=== PATIENT | male | born 1955 | race Caucasian/White ===

== ENCOUNTER → 2021-10-03 | Outpatient (CLI) | payer MEDICARE | END | disposition home or self-care (01) | LOC: LABPAT 08:53 | PROVIDERS: ATTEND Surgery | DX: Z01.812 Encounter for preprocedural laboratory examination (principal); I10 Essential (primary) hypertension | CPT/HCPCS: 93005 ==

== ENCOUNTER 2021-10-09 09:26 | Day surgery (SDC) | payer MEDICARE ==
[2021-10-01 12:26] VITALS: BMI 38.8
[~2021-10-09 09:26] MED LIST: ACETAMINOPHEN TAB 500 MG TAB PO PRN; DEXAMETHASONE SOD PHOSPHATE 4 MG/ML 1 ML VIAL IV ONE; HEPARIN SODIUM,PORCINE/PF 5,000 UNIT/0.5 ML SYRINGE SQ PRN; LACTATED RINGERS 1,000 ML IV SCH; LIDOCAINE 1% (10MG/ML) FOR IV START INTRADERMA PRN; MIDAZOLAM 2 MG/2 ML VIAL IV PRN; ONDANSETRON 4 MG/2 ML VIAL IVP ONE; ceFAZolin 3 GM in SODIUM CHLORIDE 0.9% 100 ML IVPB PRN
[2021-10-09] MEDS ORDERED: NEOSTIGMINE 1 MG/ML 10 ML VIAL ONE (11:20)
[2021-10-09] MEDS ORDERED: LIDOCAINE 1% INJ 10MG/ML (20 ML MDV) ONE (11:20)
[2021-10-09] MEDS ORDERED: SUCCINYLCHOLINE CHLORIDE 100 MG/5 ML SYR IV ONE (11:20)
[2021-10-09] MEDS ORDERED: PROPOFOL 10 MG/ML 20 ML VIAL IV ONE (11:20)
[2021-10-09] MEDS ORDERED: MIDAZOLAM 2 MG/2 ML VIAL ONE (11:20)
[2021-10-09] MEDS ORDERED: ROCURONIUM 10 MG/ML (5 ML VIAL) IV ONE (11:20)
[2021-10-09] MEDS ORDERED: GLYCOPYRROLATE 0.2 MG/ML 2 ML VIAL ONE (11:20)
[2021-10-09] MEDS ORDERED: fentaNYL (PF) 50 MCG/ML 2 ML AMP ONE (11:20)
[2021-10-09] MEDS ORDERED: BUPIVACAINE (PF) 0.25% 30 ML VIAL SQ ONE ×2 (11:55)
[2021-10-09] MEDS ORDERED: LACTATED RINGERS 1,000 ML IV ONE (12:07)
--- NOTE | 2021-10-09 12:26 | P.OP ---
Date of Procedure: 10/09/21 Procedure(s) Performed: PREOPERATIVE DIAGNOSIS: Incisional hernia POSTOPERATIVE DIAGNOSIS: Same PROCEDURE: Repair incisional hernia with mesh SURGEON: Dr. Beavers ANESTHESIA: General OPERATIVE PROCEDURE DETAILS: Patient placed on the operating table in the supine position. Abdomen was prepped and draped in usual sterile fashion. The previous incision was re-incised. Dissection through the subcutaneous tissues took place using electrocautery. A small to moderate sized reducible incisional hernia was identified. The hernia sac was carefully dissected down to the level of the fascia where it was excised. The patient had a single fascial defect measuring 2 x 1.5 cm in size. The preperitoneal space was dissected circumferentially. The 6.4 cm ventral X mesh was placed beneath the fascia and sutured to the fascia using trans-fascial 0 Ethibond sutures. Following that the fascial defect was reapproximated using vest over pants interrupted mattress 0 Ethibond sutures. The edge was tacked down as well using interrupted 0 Ethibond sutures. The subcutaneous tissues were closed using 3-0 Vicryl sutures. The skin was closed using a running 4-0 Monocryl suture. Sterile dressings were applied. HERNIA CHARACTERISTICS: Length: 2 cm Width: 1.5 cm Type: Reducible incisional TYPE OF MESH USED: 6.4 cm ventral X LOCATION OF MESH: [place] FIXATION: 0 Ethibond sutures DISPOSITION: Stable to recovery room
[2021-10-09 12:35] VITALS: RESP 16; TEMP 97
[2021-10-09] MEDS ORDERED: ACETAMINOPHEN TAB 325 MG TAB PO SCH (13:00)
[2021-10-09] MEDS: HYDROmorphone 0.5 MG/0.5 ML SYRINGE IVP PRN ×2 (13:01→13:08)
[2021-10-09] MEDS ORDERED: SUMAtriptan succinate 50 MG TAB PO STA (13:03)
[2021-10-09 15:06] VITALS: BP 124/81; PULSE 76
[2021-10-09] MEDS ORDERED: IBUPROFEN 600 MG TAB PO SCH (16:00)
== END 2021-10-09 15:03 | disposition home or self-care (01) ==
LOC: OR 09:26
PROVIDERS: ATTEND Surgery
DX: K43.2 Incisional hernia without obstruction or gangrene (principal); Z20.822 Contact with and (suspected) exposure to COVID-19
CPT/HCPCS: 49560; 49568; 87635; C1781; J2250; J1100; J2710; J0690; J2405; J2001; J3010; J0330; J2704; J1170; J1644

== ENCOUNTER → 2022-09-22 | Outpatient (CLI) | payer MEDICARE | END | disposition home or self-care (01) | LOC: LABWHC1 13:11 | PROVIDERS: ATTEND Family Medicine | DX: I49.1 Atrial premature depolarization (principal); I44.4 Left anterior fascicular block; R07.89 Other chest pain; R94.31 Abnormal electrocardiogram [ECG] [EKG] | CPT/HCPCS: 36415; 93005 ==

== ENCOUNTER → 2022-12-21 | Outpatient (CLI) | payer MEDICARE ==
[2022-12-21 14:34] LABS: HCT 44.2 % (39.6-50.0); HGB 14.5 g/dL (13.0-17.0); MCH 28.2 pg (27.0-32.0); MCHC 32.8 g/dL (32.0-37.0); MCV 85.8 fL (80.0-97.0); Mean Platelet Volume 10.8 fL (9.5-12.2); NRBC Per 100 WBC 0 /100 WBCS (0.0-0.0); Platelet Count 211 X 10*3/uL (140-440); RBC 5.15 X 10*6/uL (4.40-5.60); RDW 12.8 % (11.5-14.5); WBC 8.56 X 10*3/uL (4.50-10.00)
[2022-12-21 15:37] LABS: African American GFR (CKD) 71.6 (60.0-200.0); Anion Gap 7.9 mmol/L (10.00-18.00); Blood Urea Nitrogen 12.2 mg/dL (9.0-27.0); Carbon Dioxide 27.1 mmol/L (20.0-27.5); Non-African American GFR(CKD) 61.8 (60.0-200.0); Potassium 4.3 mmol/L (3.5-5.5)
== END | disposition home or self-care (01) ==
LOC: LABPAT 10:20
PROVIDERS: ATTEND Internal Medicine
DX: Z01.818 Encounter for other preprocedural examination (principal); R06.02 Shortness of breath
CPT/HCPCS: 80051; 82565; 84520; 85027

== ENCOUNTER 2022-12-30 07:29 | Day surgery (SDC) | payer MEDICARE ==
[2022-12-24 15:21] VITALS: BMI 41.5
[~2022-12-30 07:29] MED LIST changes: -ACETAMINOPHEN TAB 500 MG TAB PO PRN; +ALPRAZolam 0.25 MG TAB PO PRN; +ALPRAZolam 0.5 MG TAB PO PRN; +ASPIRIN 325 MG TAB PO STA; -DEXAMETHASONE SOD PHOSPHATE 4 MG/ML 1 ML VIAL IV ONE; -HEPARIN SODIUM,PORCINE/PF 5,000 UNIT/0.5 ML SYRINGE SQ PRN; -LACTATED RINGERS 1,000 ML IV SCH; -LIDOCAINE 1% (10MG/ML) FOR IV START INTRADERMA PRN; -MIDAZOLAM 2 MG/2 ML VIAL IV PRN; +NITROGLYCERIN SL TABS 0.4 MG TAB SUBLINGUAL PRN; -ONDANSETRON 4 MG/2 ML VIAL IVP ONE; +SODIUM CHLORIDE 0.9% 1,000 ML in EMPTY BAG 1 BAG IV SCH; -ceFAZolin 3 GM in SODIUM CHLORIDE 0.9% 100 ML IVPB PRN
[2022-12-30 08:12] VITALS: TEMP 97.7
[2022-12-30] MEDS ORDERED: fentaNYL (PF) 50 MCG/ML 2 ML AMP ONE (08:16)
[2022-12-30] MEDS ORDERED: HEPARIN SODIUM 1,000 UN/ML (10ML VL) ONE (08:17)
[2022-12-30] MEDS ORDERED: fentaNYL (PF) 50 MCG/ML 2 ML AMP IV ONE (08:23)
[2022-12-30] MEDS ORDERED: MIDAZOLAM 2 MG/2 ML VIAL IV ONE (08:23)
[2022-12-30] MEDS ORDERED: LIDOCAINE 1% INJ 10MG/ML (5 ML VIAL-PF) SQ ONE (08:27)
[2022-12-30] MEDS ORDERED: VERAPAMIL SYRINGE (5 MG/10 ML) INTRAARTER ONE (08:28)
[2022-12-30] MEDS ORDERED: HEPARIN SODIUM 1,000 UN/ML (10ML VL) IV ONE (08:30)
[2022-12-30] MEDS ORDERED: IOPAMIDOL-370 125ML BTL INJ ONE (08:44)
--- NOTE | 2022-12-30 08:45 | P.CARDCATH ---
Description of Procedure: PROCEDURES PERFORMED: Left heart catheterization, bilateral coronary angiography INDICATION: Abnormal stress test CONSENT:I have discussed the risks, benefits and alternative therapies for the above-mentioned procedure and for both sedation/analgesia as well as necessary blood product administration, if indicated, as they pertain to this patient. The patient has indicated understanding and acceptance of the risks and procedures discussed. PROCEDURE: After the risks, benefits and alternatives of the above mentioned procedure explained in detail with the patient, informed consent was obtained. Patient was taken to the catheterization lab and prepped and draped in usual fashion. 1% lidocaine was used to anesthetize the right radial artery. A 6- [place]i sheath was placed in the right radial artery using modified Seldinger technique. Left coronary angiography was performed with a 5-[place] JL 3.5 catheter and right coronary angiography was performed with a 5-[place] AR2 catheter in various views. A 5-[place] FR5 catheter was inserted into the left ventricle and pressure measurements were obtained. The right radial sheath was removed and a TR band was placed with hemostasis achieved. The patient tolerated the procedure well. Patient was transported back to the post catheterization holding area in stable condition. Conscious Sedation: Patient was monitored under the direct supervision of myself for conscious sedation using Versed and fentanyl for a total duration of 15 minutes HEMODYNAMICS: Order: 117/61 LV: 113/7, LVEDP 15 SELECTIVE CORONARY ARTERIOGRAPHY: LEFT MAIN: The left main is a large caliber vessel which bifurcates into the LAD and circumflex. There is no significant stenosis. The left main is very short and nearly dual ostia of LAD and circumflex. LEFT ANTERIOR DESCENDING CORONARY ARTERY: LAD is a large caliber vessel which wraps around to the apex. There is no significant stenosis. LEFT CIRCUMFLEX CORONARY ARTERY: Left circumflex is a moderate caliber vessel without significant stenosis. RIGHT CORONARY ARTERY: The right coronary artery is a large caliber vessel which gives off a PDA and PLV branch and is the dominant vessel. There is no significant stenosis. FINAL IMPRESSION: 1. Normal coronary arteries as described above. 2. Normal left sided filling pressures PLAN: 1. Aggressive risk factor modification per most recent ACC/AHA guidelines. 2. Follow-up in the office in 1-2 weeks.
[2022-12-30 09:41] VITALS: RESP 16
[2022-12-30 14:38] VITALS: BP 114/65; PULSE 82
== END 2022-12-30 13:17 | disposition home or self-care (01) ==
LOC: CATHCVL 07:29
PROVIDERS: ATTEND Internal Medicine
DX: R94.39 Abnormal result of other cardiovascular function study (principal); I10 Essential (primary) hypertension; I87.2 Venous insufficiency (chronic) (peripheral); E78.5 Hyperlipidemia, unspecified; F17.210 Nicotine dependence, cigarettes, uncomplicated; Z88.1 Allergy status to other antibiotic agents; Z79.82 Long term (current) use of aspirin; Z79.899 Other long term (current) drug therapy
CPT/HCPCS: 93458; C1769; C1894; J2250; J2001; J3010; J1644; Q9967

== ENCOUNTER → 2023-07-27 | Outpatient (CLI) | payer MEDICARE ==
--- NOTE | 2023-07-27 15:17 | XR ---
EXAMINATION TYPE: XR cervical spine comp DATE OF EXAM: 07/27/2023 3:12 PM INDICATION: Patient age:Male; 68 years old; Reason for study: M54.12 radiculopathy; PHH. COMPARISON: None TECHNIQUE: The cervical spine was imaged in AP, bilateral oblique, lateral, and odontoid projections. Frontal, lateral, odontoid and bilateral oblique. FINDINGS: The osseous structures show normal alignment without evidence of an acute fracture. Fusion of the C4 and C5 vertebral bodies. Multilevel disc space narrowing with endplate sclerosis and anterior osteoph ytosis. This is most prominent at C5-C6 and C6-C7 . Mild neural foraminal narrowing at C7 bilaterally . Pedicles are intact. Soft tissues are within normal limits. The odontoid appears intact. IMPRESSION: 1. No fracture or dislocation. 2. Mild to moderate degenerative disc disease changes of the cervical spine. 3. Fusion of the C4 and C5 vertebral bodies.
== END | disposition home or self-care (01) ==
LOC: RADXRMAIN 14:55
PROVIDERS: ATTEND Family Medicine
DX: M50.122 Cervical disc disorder at C5-C6 level with radiculopathy (principal); M43.22 Fusion of spine, cervical region
CPT/HCPCS: 72050

== ENCOUNTER 2023-08-11 12:56 | Emergency (ER) | payer MEDICARE ==
[2023-08-11] MEDS ORDERED: KETOROLAC 15 MG/ML 1 ML VIAL IVP STA (13:27)
--- NOTE | 2023-08-11 13:29 | ED ---
General Adult HPI - General Chief complaint: Neuro Symptoms/Deficit Stated complaint: HTN-Arm numbness Time Seen by Provider: 08/11/23 13:12 Source: patient, family, RN notes reviewed Mode of arrival: ambulatory Limitations: no limitations, language barrier - History of Present Illness Initial comments: Patient is a pleasant 68-year-old male presenting to the emergency department with concern for right arm paresthesia. Onset of symptoms was around a week ago. Patient does state there is minimal discomfort right side of the neck. Patient denies weakness. Patient denies loss of sensation. No confusion. No history of similar symptoms previously. Patient is deaf however is able to read lips and demonstrate understanding - Related Data Home Medications Medication Instructions Recorded Confirmed Cyclobenzaprine [Flexeril] 10 mg PO DIRECTED PRN 10/01/21 12/24/22 Meclizine [Antivert] 25 mg PO DIRECTED PRN 10/01/21 12/24/22 Omeprazole 40 mg PO QAM 10/01/21 12/30/22 SUMAtriptan succinate [Imitrex] 100 mg PO DIRECTED PRN 10/01/21 12/24/22 Aspirin 325 mg PO HS 12/24/22 12/30/22 Losartan [Cozaar] 50 mg PO HS 12/24/22 12/30/22 Previous Rx's Medication Instructions Recorded Sulfamethox-Tmp 800-160Mg [Bactrim 2 tab PO BID #40 tab 02/01/23 DS 800-160 mg] predniSONE [Deltasone] 20 mg PO BID #10 tab 08/11/23 Allergies Allergy/AdvReac Type Severity Reaction Status Date / Time Penicillins Allergy Unknown Verified 08/11/23 13:11 clindamycin AdvReac Unknown Verified 08/11/23 13:10 Review of Systems ROS Statement: Those systems with pertinent positive or pertinent negative responses have been documented in the HPI. ROS Other: All systems not noted in ROS Statement are negative. Constitutional: Denies: fever Eyes: Denies: eye pain ENT: Denies: ear pain Respiratory: Denies: dyspnea Cardiovascular: Denies: chest pain Neurological: Reports: as per HPI. Denies: headache, weakness Past Medical History Past Medical History: Hypertension Additional Past Medical History / Comment(s): MIGRAINES. VERTIGO. PT IS DEAF History of Any Multi-Drug Resistant Organisms: None Reported Past Surgical History: Cholecystectomy Additional Past Surgical History / Comment(s): SKIN CANCER REMOVED LEFT WRIST. MEGHANA CATARACTS REMOVED Past Anesthesia/Blood Transfusion Reactions: No Reported Reaction, Motion Sickness Additional Past Anesthesia/Blood Transfusion Reaction / Comment(s): HX OF VERTIGO Past Psychological History: No Psychological Hx Reported Smoking Status: Never smoker Past Alcohol Use History: Rare Past Drug Use History: None Reported - Past Family History Mother Family Medical History: Cancer, CVA/TIA Father Family Medical History: CVA/TIA General Exam Limitations: no limitations General appearance: alert, in no apparent distress Head exam: Present: normocephalic Eye exam: Present: normal appearance, PERRL, EOMI ENT exam: Present: normal oropharynx Neck exam: Present: tenderness (Minimal right lateral) Respiratory exam: Present: normal lung sounds bilaterally Cardiovascular Exam: Present: regular rate, normal rhythm Expanded Peripheral pulses: 2+: Radial (R), Radial (L) GI/Abdominal exam: Present: soft. Absent: tenderness Extremities exam: Present: normal inspection, full ROM. Absent: tenderness Neurological exam: Present: alert, CN II-XII intact. Absent: motor sensory def icit Expanded Neurological exam: Present: protecting the airway Speech: Present: fluid speech Cranial nerves: EOM's Intact: Normal Sensory exam: Upper Extremity Light Touch: Normal, Lower Extremity Light Touch: Normal Motor strength exam: RUE: 5, LUE: 5, RLE: 5, LLE: 5 Eye Response: (4) open spontaneously Motor Response: (6) obeys commands Verbal Response: (5) oriented Psychiatric exam: Present: normal affect, normal mood Skin exam: Present: normal color Course Vital Signs 08/11/23 08/11/23 08/11/23 13:02 14:10 15:56 Temperature 97.6 F Pulse Rate 76 85 80 Respiratory 17 20 20 Rate Blood Pressure 128/83 139/65 134/76 O2 Sat by Pulse 98 98 98 Oximetry EKG Findings - EKG Results: EKG: interpreted by ERMD (l [place]. Poor R-wave progression. Nonspecific ST-T.), sinus rhythm Medical Decision Making - Medical Decision Making Was pt. sent in by a medical professional or institution (, PA, VISION CARE ASSOCIATE, urgent care, hospital, or care home...) When possible be specific @ -No Did you speak to anyone other than the patient for history (EMS, parent, family, police, friend...)? What history was obtained from this source @ - is present and helps confirm history including using sign language Did you review nursing and triage notes (agree or disagree)? Why? @ -I reviewed and agree with nursing and triage notes Were old charts reviewed (outside hosp., previous admission, EMS record, old EKG, old radiological studies, urgent care reports/EKG's, care home records)? Report findings @ -No old charts were reviewed Differential Diagnosis (chest pain, altered mental status, abdominal pain women, abdominal pain men, vaginal bleeding, weakness, fever, dyspnea, syncope, heada florentin, dizziness, GI bleed, back pain, seizure, CVA, palpatations, mental health, musculoskeletal)? @ -Differential Musculoskeletal Muscular strain, contusion, ligament sprain, fracture, arthritis, septic arthritis, bursitis, cellulitis, muscle spasm, nerve compression, DVT, arterial occlusion, herpes zoster, electrolyte abnormality, tumor.... This is not meant to be in all inclusive list EKG interpreted by me (3pts min.). @ -As above X-rays interpreted by me (1pt min.). @ -Chest x-ray shows no acute process. CT interpreted by me (1pt min.). @ -Truman reviewed U/S interpreted by me (1pt. min.). @ -None done What testing was considered but not performed or refused? (CT, X-rays, U/S, labs)? Why? @ -None What meds were considered but not given or refused? Why? @ -None Did you discuss the management of the patient with other professionals (professionals i.e. , PA, VISION CARE ASSOCIATE, lab, RT, psych nurse, high school social studies tutor, recreation program coordinator, teacher, animal park code enforcement officer, case assistant)? Give summary @ -No Was smoking cessation discussed for >3mins.? @ -No Was critical care preformed (if so, how long)? @ -No Were there social determinants of health that impacted care today? How? (Homelessness, low income, unemployed, alcoholism, drug addiction, transportation, low edu. Level, literacy, decrease access to med. care, fdc, rehab)? @ -No Was there de-escalation of care discussed even if they declined (Discuss DNR or withdrawal of care, Hospice)? DNR status @ -No What co-morbidities impacted this encounter? (DM, HTN, Smoking, COPD, CAD, Cancer, CVA, ARF, Chemo, Hep., AIDS, mental health diagnosis, sleep apnea, morbid obesity)? @ -None Was patient admitted / discharged? Hospital course, mention meds given and route, prescriptions, significant lab abnormalities, going to OR and other pertinent info. @ -Patient reevaluated with improvement however not complete resolution. Patient and family updated on results and need for follow-up. Patient will be discharged with orthopedic follow-up. Patient previously has family that has seen Dr. Garcia. Patient will be prescribed steroids. Undiagnosed new problem with uncertain prognosis? @ -No Drug Therapy requiring intensive monitoring for toxicity (Heparin, Nitro, Insulin, Cardizem)? @ -No Were any procedures done? @ -No Diagnosis/symptom? @ -Right arm paresthesias Acute, or Chronic, or Acute on Chronic? @ -Acute Uncomplicated (without systemic symptoms) or Complicated (systemic symptoms)? @ -default Side effects of treatment? @ -No Exacerbation, Progression, or Severe Exacerbation? @ -No Poses a threat to life or bodily function? How? (Chest pain, [place], [place], pneumonia, PE, COPD, DKA, ARF, appy, cholecystitis, CVA, Diverticulitis, Homicidal, Suicidal, threat to staff... and all critical care pts) @ -No - Lab Data Result diagrams: 08/11/23 13:47 08/11/23 13:47 Lab Results 08/11/23 08/11/23 08/11/23 Range/Units 13:47 13:47 13:47 WBC 8.4 (3.8-10.6) k/uL RBC 5.17 (4.30-5.90) m/uL Hgb 15.6 (13.0-17.5) gm/dL Hct 45.2 (39.0-53.0) % MCV 87.4 (80.0-100.0) fL MCH 30.2 (25.0-35.0) pg MCHC 34.6 (31.0-37.0) g/dL RDW 13.4 (11.5-15.5) % Plt Count 179 (150-450) k/uL MPV 7.9 Neutrophils % 75 % Lymphocytes % 18 % Monocytes % 4 % Eosinophils % 1 % Basophils % 0 % Neutrophils # 6.3 (1.3-7.7) k/uL Lymphocytes # 1.5 (1.0-4.8) k/uL Monocytes # 0.4 (0-1.0) k/uL Eosinophils # 0.1 (0-0.7) k/uL Basophils # 0.0 (0-0.2) k/uL PT 11.4 (10.0-12.5) sec INR 1.1 (<1.2) APTT 26.3 (22.0-30.0) sec Sodium 138 (137-145) mmol/L Potassium 4.3 (3.5-5.1) mmol/L Chloride 105 (98-107) mmol/L Carbon Dioxide 24 (22-30) mmol/L Anion Gap 9 mmol/L BUN 14 (9-20) mg/dL Creatinine 1.04 (0.66-1.25) mg/dL Est GFR (CKD-EPI)AfAm 85 (>60 ml/min/1.73 sqM) Est GFR (CKD-EPI)NonAf 73 (>60 ml/min/1.73 sqM) Glucose 109 H (74-99) mg/dL Calcium 8.8 (8.4-10.2) mg/dL Total Bilirubin 1.3 (0.2-1.3) mg/dL AST 25 (17-59) U/L ALT 28 (4-49) U/L Alkaline Phosphatase 114 (38-126) U/L Creatine Kinase 72 (55-170) U/L Troponin I (0.000-0.034) ng/mL Total Protein 7.1 (6.3-8.2) g/dL Albumin 4.0 (3.5-5.0) g/dL 08/11/23 Range/Units 13:47 WBC (3.8-10.6) k/uL RBC (4.30-5.90) m/uL Hgb (13.0-17.5) gm/dL Hct (39.0-53.0) % MCV (80.0-100.0) fL MCH (25.0-35.0) pg MCHC (31.0-37.0) g/dL RDW (11.5-15.5) % Plt Count (150-450) k/uL MPV Neutrophils % % Lymphocytes % % Monocytes % % Eosinophils % % Basophils % % Neutrophils # (1.3-7.7) k/uL Lymphocytes # (1.0-4.8) k/uL Monocytes # (0-1.0) k/uL Eosinophils # (0-0.7) k/uL Basophils # (0-0.2) k/uL PT (10.0-12.5) sec INR (<1.2) APTT (22.0-30.0) sec Sodium (137-145) mmol/L Potassium (3.5-5.1) mmol/L Chloride (98-107) mmol/L Carbon Dioxide (22-30) mmol/L Anion Gap mmol/L BUN (9-20) mg/dL Creatinine (0.66-1.25) mg/dL Est GFR (CKD-EPI)AfAm (>60 ml/min/1.73 sqM) Est GFR (CKD-EPI)NonAf (>60 ml/min/1.73 sqM) Glucose (74-99) mg/dL Calcium (8.4-10.2) mg/dL Total Bilirubin (0.2-1.3) mg/dL AST (17-59) U/L ALT (4-49) U/L Alkaline Phosphatase (38-126) U/L Creatine Kinase (55-170) U/L Troponin I <0.012 (0.000-0.034) ng/mL Total Protein (6.3-8.2) g/dL Albumin (3.5-5.0) g/dL Disposition Clinical Impression: Arm paresthesia, right Disposition: HOME SELF-CARE Condition: Stable Instructions (If sedation given, give patient instructions): Paresthesia (ED), Cervical Radiculopathy (ED) Additional Instructions: Please do follow-up to primary care physician in the next couple of days for recheck. Please also follow-up with or to spine, numbers provided. Return for increased pain, weakness, fever, worsening symptoms or any other concerns. Prescription sent to pharmacy. Prescriptions: predniSONE [Deltasone] 20 mg PO BID #10 tab Is patient prescribed a controlled substance at d/c from ED?: No Referrals: Tolu Pierce MD [Primary Care Provider] - 1-2 days Benjamin Garcia DO [Doctor of Osteopathic Medicine] - 1-2 days Geovany Davidson DO [Doctor of Osteopathic Medicine] - 1-2 days Time of Disposition: 16:44
[2023-08-11 13:31] VITALS: TEMP 97.6
[2023-08-11 13:55] LABS: Basophils % (A) 0 %; Eosinophils # (A) 0.1 k/uL (0-0.7); Eosinophils % (A) 1 %; HCT 45.2 % (39.0-53.0); HGB 15.6 gm/dL (13.0-17.5); Lymphocytes # (A) 1.5 k/uL (1.0-4.8); Lymphocytes % (A) 18 %; MCH 30.2 pg (25.0-35.0); MCHC 34.6 g/dL (31.0-37.0); MCV 87.4 fL (80.0-100.0); Mean Platelet Volume 7.9; Monocytes # (A) 0.4 k/uL (0-1.0); Monocytes % (A) 4 %; Neutrophils # (A) 6.3 k/uL (1.3-7.7); Neutrophils % (A) 75 %; Platelet Count 179 k/uL (150-450); RBC 5.17 m/uL (4.30-5.90); RDW 13.4 % (11.5-15.5); WBC 8.4 k/uL (3.8-10.6)
[2023-08-11 14:05] LABS: INR 1.1 (<1.2); Partial Thromboplastin Time 26.3 sec (22.0-30.0); Prothrombin Time 11.4 sec (10.0-12.5)
[2023-08-11 14:08] LABS: ALT 28 U/L (4-49); AST 25 U/L (17-59); African American GFR (CKD) 85 (>60 ml/min/1.73 sqM); Alkaline Phosphatase 114 U/L (38-126); Anion Gap 9 mmol/L; Blood Urea Nitrogen 14 mg/dL (9-20); Calcium 8.8 mg/dL (8.4-10.2); Carbon Dioxide 24 mmol/L (22-30); Chloride 105 mmol/L (98-107); Creatine Kinase 72 U/L (55-170); Glucose 109 mg/dL (74-99); Non-African American GFR(CKD) 73 (>60 ml/min/1.73 sqM); Potassium 4.3 mmol/L (3.5-5.1); Sodium 138 mmol/L (137-145); Total Bilirubin 1.3 mg/dL (0.2-1.3); Total Protein 7.1 g/dL (6.3-8.2)
--- NOTE | 2023-08-11 15:28 | XR ---
EXAMINATION TYPE: XR chest 2V DATE OF EXAM: 08/11/2023 COMPARISON: None INDICATION: Left-sided numbness TECHNIQUE: Frontal and lateral views of the chest are obtained. FINDINGS: The heart size is normal. The pulmonary vasculature is normal. The lungs are clear. IMPRESSION: 1. No acute pulmonary process.
--- NOTE | 2023-08-11 15:58 | CT ---
EXAMINATION TYPE: CT brain kim hamilton DATE OF EXAM: 08/11/2023 COMPARISON: none HISTORY: Right arm numbness CT DLP: 1696.[address] of the brain was performed. The ventricles, basal cisterns and sulci overlying the cerebral convexities demonstrate mild enlargem ent. There is no evidence for intracranial hemorrhage or sulcal effacement. There is decreased attenuatio n about the periventricular white matter and deep white matter of both cerebral hemispheres, compatib le with chronic small vessel ischemia. No mass effects are seen. If symptoms persist consider MRI. Osseous calvarium is intact. IMPRESSION: 1. Age related atrophic and chronic small vessel ischemic change without acute intracranial process seen at this time. CT Cervical Spine: Unenhanced CT of the cervical spine was performed with bone and soft tissue window settings submitted . Coronal and sagittal reconstruction is obtained. There is normal alignment and prevertebral soft tissues. No evidence for acute cervical fracture . Scattered degenerative disc disease and spondylosis. Biapical scarring. IMPRESSION: 1. No evidence for acute fracture or subluxation of the cervical spine.
[2023-08-11 17:18] VITALS: BP 146/85; PULSE 65; RESP 16
== END 2023-08-11 17:16 | disposition home or self-care (01) ==
LOC: EC 12:56
DX: R20.2 Paresthesia of skin (principal); I10 Essential (primary) hypertension; Z79.82 Long term (current) use of aspirin; Z79.899 Other long term (current) drug therapy; Z88.0 Allergy status to penicillin; Z88.1 Allergy status to other antibiotic agents; Z90.49 Acquired absence of other specified parts of digestive tract
CPT/HCPCS: 36415; 93005; 80053; 82550; 84484; 85025; 85610; 85730; 71046; 72125; 70450; 99285; 96374; J1885

== ENCOUNTER 2023-12-01 09:08 | Emergency (ER) | payer MEDICARE ==
--- NOTE | 2023-12-01 10:54 | ED ---
Headache HPI - General Chief Complaint: Headache Stated Complaint: High Blood Pressure Time Seen by Provider: 12/01/23 09:15 Mode of arrival: ambulatory Limitations: language barrier - History of Present Illness Initial Comments: 68-year-old male presents emergency department with high blood pressure. He does have a history of high blood pressure. States that he awoke this morning and had significant migraine with right-sided neck pain. He does suffer from chronic neck pain which causes him to have migraines. He does have migraine medication for which she took a dose. He checked his blood pressure and it was high. He came into the emergency department for evaluation. Patient reports that his migraine has markedly improved. Upon hospital evaluation the patient's blood pressure is back to baseline. Patient feels as if the exacerbation of his neck pain caused his migraine which then caused him to suffer from the high blood pressure. Patient denies having any visual changes. No slurred speech. No numbness, tingling or weakness in his extremities. No chest pain or difficulty breathing. No other alleviating, precipitating modifying factors - Related Data Home Medications Medication Instructions Recorded Confirmed Cyclobenzaprine [Flexeril] 10 mg PO DIRECTED PRN 10/01/21 12/24/22 Meclizine [Antivert] 25 mg PO DIRECTED PRN 10/01/21 12/24/22 RX: Omeprazole 40 mg PO QAM 10/01/21 12/30/22 SUMAtriptan succinate [Imitrex] 100 mg PO DIRECTED PRN 10/01/21 12/24/22 Losartan [Cozaar] 50 mg PO HS 12/24/22 12/30/22 RX: Aspirin 325 mg PO HS 12/24/22 12/30/22 Previous Rx's Medication Instructions Recorded RX: Sulfamethox-Tmp 800-160Mg 2 tab PO BID #40 tab 02/01/23 [Bactrim DS 800-160 mg] RX: predniSONE [Deltasone] 20 mg PO BID #10 tab 08/11/23 methocarbamoL [Robaxin-750] 750 mg PO QID PRN #30 tab 12/01/23 Allergies Allergy/AdvReac Type Severity Reaction Status Date / Time Penicillins Allergy Unknown Verified 12/01/23 09:15 clindamycin AdvReac Unknown Verified 12/01/23 09:15 Review of Systems ROS Statement: Those systems with pertinent positive or pertinent negative responses have been documented in the HPI. ROS Other: All systems not noted in ROS Statement are negative. Past Medical History Past Medical History: Hypertension Additional Past Medical History / Comment(s): MIGRAINES. VERTIGO. PT IS DEAF History of Any Multi-Drug Resistant Organisms: None Reported Past Surgical History: Cholecystectomy Additional Past Surgical History / Comment(s): SKIN CANCER REMOVED LEFT WRIST. MEGHANA CATARACTS REMOVED Past Anesthesia/Blood Transfusion Reactions: No Reported Reaction, Motion Sickness Additional Past Anesthesia/Blood Transfusion Reaction / Comment(s): HX OF VERTIGO Past Psychological History: No Psychological Hx Reported Smoking Status: Never smoker Past Alcohol Use History: Rare Past Drug Use History: None Reported - Past Family History Mother Family Medical History: Cancer, CVA/TIA Father Family Medical History: CVA/TIA General Exam Limitations: language barrier (Patient is deaf and therefore court interpreter is used) General appearance: alert, in no apparent distress Head exam: Present: atraumatic, normocephalic, normal inspection Eye exam: Present: normal appearance, PERRL, EOMI. Absent: scleral icterus, conjunctival injection, periorbital swelling ENT exam: Present: normal exam, mucous membranes moist Neck exam: Present: normal inspection. Absent: tenderness, meningismus, lymphadenopathy Respiratory exam: Present: normal lung sounds bilaterally. Absent: respiratory distress, wheezes, rales, rhonchi, stridor Cardiovascular Exam: Present: regular rate, normal rhythm, normal heart sounds. Absent: systolic murmur, diastolic murmur, rubs, gallop, clicks GI/Abdominal exam: Present: soft, normal bowel sounds. Absent: distended, tenderness, guarding, rebound, rigid Extremities exam: Present: normal inspection, full ROM, normal capillary refill. Absent: tenderness, pedal edema, joint swelling, calf tenderness Back exam: Present: normal inspection Neurological exam: Present: alert, oriented X3, CN II-XII intact Psychiatric exam: Present: normal affect, normal mood Skin exam: Present: warm, dry, intact, normal color. Absent: rash Course Vital Signs 12/01/23 12/01/23 09:10 11:20 Temperature 97.8 F 98.2 F Pulse Rate 64 78 Respiratory 18 16 Rate Blood Pressure 132/83 132/80 O2 Sat by Pulse 100 98 Oximetry Medical Decision Making - Medical Decision Making Was pt. sent in by a medical professional or institution (KIT sIsa, GEOGRAPHIC AREA INTELLIGENCE OFFICER, urgent care, hospital, or [place] health care facility...) When possible be specific @ -No Did you speak to anyone other than the patient for history (EMS, parent, family, police, friend...)? What history was obtained from this source @ -No Did you review nursing and triage notes (agree or disagree)? Why? @ -I reviewed and agree with nursing and triage notes Were old charts reviewed (outside hosp., previous admission, EMS record, old EKG, old radiological studies, urgent care reports/EKG's, [place] health care facility records)? Report findings @ -No old charts were reviewed Differential Diagnosis (chest pain, altered mental status, abdominal pain women, abdominal pain men, vaginal bleeding, weakness, fever, dyspnea, syncope, headache, dizziness, GI bleed, back pain, seizure, CVA, palpatations, mental health, musculoskeletal)? @ -Cervical strain, migraine, accelerated hypertension EKG interpreted by me (3pts min.). @ -Yes and demonstrates inverted T wave in lead III. No acute ST segment elevation. Sinus rhythm with a rate of 61. MO interval 145. QRS 97. QTc of 389 X-rays interpreted by me (1pt min.). @ -None done CT interpreted by me (1pt min.). @ -None done U/S interpreted by me (1pt. min.). @ -None done What testing was considered but not performed or refused? (CT, X-rays, U/S, labs)? Why? @ -None What meds were considered but not given or refused? Why? @ -None Did you discuss the management of the patient with other professionals (professionals i.e. KIT Issa, GEOGRAPHIC AREA INTELLIGENCE OFFICER, lab, RT, psych nurse, professor of social work, market consultant, teacher, flight deck officer, casework supervisor)? Give summary @ -No Was smoking cessation discussed for >3mins.? @ -No Was critical care preformed (if so, how long)? @ -No Were there social determinants of health that impacted care today? How? (Homelessness, low income, unemployed, alcoholism, drug addiction, transportation, low edu. Level, literacy, decrease access to med. care, longterm, rehab)? @ -No Was there de-escalation of care discussed even if they declined (Discuss DNR or withdrawal of care, Hospice)? DNR status @ -No What co-morbidities impacted this encounter? (DM, HTN, Smoking, COPD, CAD, Cancer, CVA, ARF, Chemo, Hep., AIDS, mental health diagnosis, sleep apnea, morbid obesity)? @ -Hearing impaired, chronic neck pain, migraines, hypertension Was patient admitted / discharged? Hospital course, mention meds given and route, prescriptions, significant lab abnormalities, going to OR and other pertinent info. @ -Upon arrival patient was seen and evaluated in room 8. Thorough history and physical exam was performed. Patient states that his migraine and neck pain are controlled at this time. Patient's blood pressure has returned to normal. I did discuss further treatment of the patient's neck pain with Robaxin as he states his current Flexeril makes him extremely sleepy. He was also given a dose of Toradol. Patient's blood pressure is notably good at this time. He is instructed to go home and check his blood pressure to ensure that his cuff is accurate. Patient understood this. He needs to follow-up with his doctor in 2 to 4 days. Return for any new or worsening symptoms. Patient was agreeable to this and he was discharged in stable condition Undiagnosed new problem with uncertain prognosis? @ -No Drug Therapy requiring intensive monitoring for toxicity (Heparin, Nitro, Insulin, Cardizem)? @ -No Were any procedures done? @ -No Diagnosis/symptom? @ -Acute neck pain, acute migraine, accelerated hypertension Acute, or Chronic, or Acute on Chronic? @ -Acute Uncomplicated (without systemic symptoms) or Complicated (systemic symptoms)? @ -Complicated Side effects of treatment? @ -No Exacerbation, Progression, or Severe Exacerbation? @ -yes Poses a threat to life or bodily function? How? (Chest pain, USA, IA, pneumonia, PE, COPD, DKA, ARF, appy, cholecystitis, CVA, Diverticulitis, Homicidal, Suicidal, threat to staff... and all critical care pts) @ -No Disposition Clinical Impression: Hypertension, Neck pain, Migraine Disposition: HOME SELF-CARE Condition: Stable Instructions (If sedation given, give patient instructions): Chronic Hypertension (ED), Neck Pain (ED) Additional Instructions: Please try the new muscle relaxer to see if it makes you less sedated. Take y our blood pressure as soon as you get home and make sure that it matches up with ours because your blood pressures have been good in our emergency department. Return for any new or worsening issues Prescriptions: methocarbamoL [Robaxin-750] 750 mg PO QID PRN #30 tab PRN Reason: Muscle Spasm Is patient prescribed a controlled substance at d/c from ED?: No Referrals: Tolu Pierce MD [Primary Care Provider] - 1-2 days Time of Disposition: 10:54
[2023-12-01] MEDS: KETOROLAC 15 MG/ML 1 ML VIAL IM STA (11:13)
[2023-12-01] MEDS: methocarbamoL 750 MG TAB PO ONE (11:13)
[2023-12-01 11:21] VITALS: BP 132/80; PULSE 78; RESP 16; TEMP 98.2
== END 2023-12-01 11:20 | disposition home or self-care (01) ==
LOC: EC 09:08
DX: I10 Essential (primary) hypertension (principal); M54.2 Cervicalgia; G43.909 Migraine, unspecified, not intractable, without status migrainosus; Z79.82 Long term (current) use of aspirin; Z79.899 Other long term (current) drug therapy; Z88.0 Allergy status to penicillin; Z88.1 Allergy status to other antibiotic agents
CPT/HCPCS: 99284; 96372; J1885

== ENCOUNTER → 2025-04-04 | Outpatient (CLI) | payer MEDICARE ==
[2025-04-04 10:18] VITALS: BP 129/82; PULSE 70; RESP 18; TEMP 98.7
--- NOTE | 2025-04-04 12:32 | P.PAINPG ---
PQRS Measure Charge Sheet Comment: HISTORY OF PRESENT ILLNESS: A 69 yr old [id number] male w tele-services rep at side as a referral from Dr Garcia presents today w severe and chronic neck pain > 1 yr secondary to radiculopathy, spondylosis and facet arthropathy without myelopathy for evaluation. Pt states pain level is provoked at 5-6 /10 in intensity, constant, localized in the R cervical sipne, predominantly axial, tender in character w occasional shooting pain towards the R hand. Pain is provoked by overhead reaching. Pain is alleviated by PT x 6 wks which ended in 2022, physician guided home stretches almost daily since 2022, medications, topical, repositioning and rest . Cervical disability score at 27. PMH: OA, HTN, GERD, MDD, Migraines, Deafness/ Hard of Hearing PSH: Cholecystectomy, Skin CA on L Wrist, BL Cataract Excisions SH: Never smoker, Rare ETOH use, No illicit drug use FH: Mo- CVA, CA. Fa- CVA All: See list Medications include Aleve, Robaxin, Nurtec REVIEW OF ORGAN SYSTEMS: CONSTITUTIONAL: No fevers or chills. No recent weight loss. NEUROLOGICAL: + numbness and tingling along the distal extremities. No seizure disorders or headaches. MUSCULOSKELETAL: + pain PSYCHIATRIC: Denies current depression or suicidal though ts. Physical Examinations : Constitutional : Cooperative , not in acute distress . Neurologic : Cranial nerve II to XII intact. No focal neurological deficits. Psychiatric : alert & oriented x 3. Matching mood & appropriate affect. Judgment & insight intact. Musculoskeletal : Cervical Spine Motor strength in the deltoid and biceps: Normal right side. Normal Left side Motor strength biceps and the wrist extensors: Normal right side . Normal left side Motor strength in the triceps muscle: Normal right side. Normal left side Deep tendon reflexes: Normal at the biceps. Normal at Brachioradialis. Normal at triceps Vertebral body tenderness to deep palpation over Cervical facet loading test: positive bilaterally C3-C4, C4-C5 Spurling test: positive bilaterally Neck distraction test: positive bilaterally Sanjiv sign: positive bilaterally Lumbar spine Motor strength lower extremities ,thigh and legs 5/5 Right side , 5/5 Left side Deep tendon reflexes : Normal Knee Jerk. Normal Ankle Jerk Vertebral body tenderness over Moran Test positive Lumbar facet Loading Test: positive Right / positive Left Range of motion of the lumbar spine Flexion 30 degrees, extension 10 degrees Straight Leg Raise test: Left/ Right positive at degrees Evelia test: positive right / positive left. Severe tenderness over the Sacroiliac joint on the Right / Left sides Gaenslen test: positive bilaterally Seated flexion test: positive bi laterally. Sacral spine : Severe tenderness over the Sacroiliac joint: right side / left side Range of motion: Flexion of the lumbar spine <60 degrees Range of motion: Extension of the lumbar spine <20 degrees Gaenslen's Test positive Evelia test: positive right side / left side Thigh Thrust Test Sacral Thrust Test Imaging: CT non contrast brain from 08/11/23 reviewed MRI non contrast cervical spine from 02/04/25 reviewed Assessment/ Plan : C4-C5 autofusion, C3-C6 facet arthropathy Recommendation of MBB C3-C4, C4-C5 #1. Risks, benefits of procedure discussed and patient verbalized understanding. Admits to anti- coagulant use or medical history of diabetes. Protocol for discontinuation/ continuation of medications ramesh procedure discussed. Minimal anesthesia provided, if clinically indicated, consisting of Versed and Fentanyl. All questions answered. I have spent greater than 30 minutes on patient care today. Dr Thompson was available by phone for the evaluation of this patient. The time was used to review the medical records including relevant urine studies and Prescription history (MAPs), review of the available imaging, evaluation and examination of the patient, coordination of care with the medical staff and if applicable referring physicians, as well as creation of the medical record Home Medications: Ambulatory Orders Cyclobenzaprine [Flexeril] 10 mg PO DIRECTED PRN 10/01/21 Meclizine [Antivert] 25 mg PO DIRECTED PRN 10/01/21 Omeprazole 40 mg PO QAM 10/01/21 SUMAtriptan succinate [Imitrex] 100 mg PO DIRECTED PRN 10/01/21 Aspirin 325 mg PO HS 12/24/22 Losartan [Cozaar] 50 mg PO HS 12/24/22 Sulfamethox-Tmp 800-160Mg [Bactrim DS 800-160 mg] 2 tab PO BID #40 tab 02/01/23 predniSONE [Deltasone] 20 mg PO BID #10 tab 08/11/23 methocarbamoL [Robaxin-750] 750 mg PO QID PRN #30 tab 12/01/23 Controlled Substance Measures - Controlled Substance Measures Is patient prescribed a controlled substance at discharge?: No
== END ==
LOC: PNWHC3 09:38
PROVIDERS: ATTEND Specialist
DX: M47.22 Other spondylosis with radiculopathy, cervical region (principal); M43.22 Fusion of spine, cervical region; Z88.0 Allergy status to penicillin; Z88.1 Allergy status to other antibiotic agents
CPT/HCPCS: 99211